=== PATIENT | male | born 1975 | race Caucasian/White ===

== ENCOUNTER 2017-03-31 03:05 | Emergency (ER) | payer BC ==
[~2017-03-31] VITALS: Ht 172.7 cm; Wt 67.0 kg
[2017-03-31 03:13] VITALS: Ht 172.7 cm; Wt 67.0 kg
[2017-03-31] MEDS ORDERED: KETOROLAC 30 MG INJ IV STA ×3 (03:13→07:53)
[2017-03-31] MEDS ORDERED: morphine 4 MG/ML VIAL IV STA (03:13)
[2017-03-31] MEDS ORDERED: ONDANSETRON 4 MG INJ IV STA (03:13)
[2017-03-31] MEDS ORDERED: SOD CHLORIDE 0.9% 1,000 ML IV STA (03:13)
[2017-03-31 03:28] LABS: ADD SCAN DIFF NO
[2017-03-31 03:33] LABS: BASOPHIL # 0.1 10^3/ul (0.0-0.1); BASOPHILS % 1.1 % (0.0-2.0); EOSINOPHILS # 0.1 10^3/ul (0.0-0.5); EOSINOPHILS % 1.5 % (0.0-7.0); HEMATOCRIT 40.3 % (42.0-52.0); LYMPHOCYTES % 53.4 % (15.0-51.0); MEAN CORPUSCULAR HEMOGLOBIN 30.6 pg (29.0-33.0); MEAN CORPUSCULAR HGB CONC 34.7 g/dl (32.0-37.0); MEAN CORPUSCULAR VOLUME 88.2 fl (82.0-101.0); MEAN PLATELET VOLUME 8.8 fl (7.4-10.4); MONOCYTE # 0.7 10^3/ul (0.3-0.9); NEUTROPHIL # 2.6 10^3/ul (1.6-7.5); NEUTROPHILS % 34.7 % (39.0-77.0); PLATELET COUNT 322 10^3/UL (140-415); RED BLOOD COUNT 4.57 10^6/ul (4.70-6.10); RED CELL DISTRIBUTION WIDTH 12.3 % (11.5-14.5); WHITE BLOOD COUNT 7.4 10^3/ul (4.8-10.8)
[2017-03-31 04:01] LABS: ALBUMIN 4.7 g/dl (3.3-4.9); ALBUMIN/GLOBULIN RATIO 1.17; BILIRUBIN,INDIRECT 0.1 mg/dl (0-1.1); BILIRUBIN,TOTAL 0.1 mg/dl (0.2-1.3); CALCIUM 10.1 mg/dl (8.4-10.2); CREATININE 1.14 mg/dl (0.61-1.24); POTASSIUM 3.5 mmol/L (3.5-5.1); TOTAL PROTEIN 8.7 g/dl (6.1-8.1)
--- NOTE | 2017-03-31 04:11 | RADRPT ---
PROCEDURE: CT Abdomen and Pelvis without contrast. CLINICAL INDICATION: Abdominal pain TECHNIQUE: CT scan of the abdomen and pelvis without contrast was performed on a multidetector hig h-resolution CT scanner. The patient was scanned without intravenous contrast. Coronal and sagittal reformatted images were obtained from the axial source images. Images were reviewed on a high-resol [employer] PACS workstation. The total exam CTDI equals 7.99 mGy and the total exam DLP equals 455.4 mGy- cm. One or more the following dose reduction techniques were utilized: Automated exposure control, adjus tment of the mA/ or kV according to patient's size, or use of iterative reconstruction technique. COMPARISON: None. FINDINGS: CT abdomen: Minimal dependent atelectasis in posterior lower lungs. Minimal linear atelectasis/fibrosis is seen at the lung bases. The heart size is normal, without pericardial thickening or effusion. The liver is normal in size and density without focal mass or intrahepatic biliary dilatation. The spleen is normal in size and homogeneous in density. Food material/debris and air in stomach. The pancreas a s visualized is normal. The gallbladder and biliary tree are unremarkable and there is no evidence for biliary dilatation. The adrenal glands are symmetric and normal. There is a nonobstructing 2 m m calculus in the mid left kidney. There is mild right hydronephrosis and a 3 mm calculus at the ri ght ureterovesicle junction. The aorta is of normal caliber. There is no retroperitoneal lymphadenopathy. The nathan hepatis r egion is clear. The bowel and mesentery, as visualized, are unremarkable. CT pelvis: The small bowel loops situated within the pelvis are unremarkable. The pelvic organs are normal. T he pelvic sidewalls and inguinal regions are clear. The sigmoid colon and rectum are unremarkable. No mass, lymphadenopathy, or free fluid is seen. No acute inflammation is seen. There is an unrem arkable appendix. Bilateral L5 spondylolysis with minimal grade 1 L5 on S1 spondylolisthesis. 1 cm likely dystrophic c alcification in muscle anterior to right hip. IMPRESSION: Mild right hydronephrosis and a 3 mm calculus at the right ureterovesicle junction. Nonobstructing 2 mm calculus in mid left kidney. Please see above. RPTAT: HJES .Mayco Marsh MD, MD Date Time Electronically viewed and signed by .Mayco Marsh MD, on 03/31/2017 04:11 .S/
[2017-03-31] MEDS ORDERED: HYDROmorphONE 1 MG/ML SYG IV ONE (04:17)
--- NOTE | 2017-03-31 04:35 | ERD ---
ER Documentation Chief Complaint Date/Time DATE: 03/31/17 TIME: 04:34 Chief Complaint HPI 41-year-old male comes in once of flank pain sudden onset for 3 hours. Pain is moderate to severe in intensity with associated nausea and 2 episodes of vomiting which were nonbilious. No radiations. No dysuria. No fevers or chills. No other current complaints. ROS All systems reviewed and are negative except as per history of present illness. Allergies Allergies: Coded Allergies: No Known Drug Allergies (Verified Allergy, Unknown, 03/31/17) PMhx/Soc Medical and Surgical Hx: pt denies Surgical Hx History of Surgery: No Anesthesia Reaction: No Hx Neurological Disorder: No Hx Respiratory Disorders: No Hx Cardiac Disorders: Yes (HTN) Hx Psychiatric Problems: No Hx Miscellaneous Medical Probl: No Hx Alcohol Use: No Hx Substance Use: No Hx Tobacco Use: No Smoking Status: Never smoker Physical Exam Vitals Vital Signs Date Time Temp Pulse Resp B/P Pulse Ox O2 Delivery O2 Flow Rate FiO2 03/31/17 03:44 98.3 67 18 158/88 100 Room Air 03/31/17 03:13 98.3 79 24 136/96 100 Physical Exam Const: [] Head: Atraumatic Eyes: Normal Conjunctiva ENT: Normal External Ears, Nose and Mouth. Neck: Full range of motion..~ No meningismus. Resp: Clear to auscultation bilaterally Cardio: Regular rate and rhythm, no murmurs Abd: Soft, non tender, non distended. Normal bowel sounds Skin: No petechiae or rashes Back: No midline or flank tenderness Ext: No cyanosis, or edema Neur: Awake and alert Psych: Normal Mood and Affect Result Diagram: 03/31/17 0320 03/31/17 0320 Results 24 hrs Laboratory Tests Test 03/31/17 03:20 White Blood Count 7.410^3/ul Red Blood Count 4.5710^6/ul Hemoglobin 14.0g/dl Hematocrit 40.3% Mean Corpuscular Volume 88.2fl Mean Corpuscular Hemoglobin 30.6pg Mean Corpuscular Hemoglobin Concent 34.7g/dl Red Cell Distribution Width 12.3% Platelet Count 76552^3/UL Mean Platelet Volume 8.8fl Neutrophils % 34.7% Lymphocytes % 53.4% Monocytes % 9.0% Eosinophils % 1.5% Basophils % 1.1% Nucleated Red Blood Cells % 0.0/100WBC Neutrophils # 2.610^3/ul Lymphocytes # 4.010^3/ul Monocytes # 0.710^3/ul Eosinophils # 0.110^3/ul Basophils # 0.110^3/ul Nucleated Red Blood Cells # 0.010^3/ul Sodium Level 142mmol/L Potassium Level 3.5mmol/L Chloride Level 105mmol/L Carbon Dioxide Level 23mmol/L Anion Gap 18 Blood Urea Nitrogen 17mg/dl Creatinine 1.14mg/dl Glucose Level 110mg/dl Calcium Level 10.1mg/dl Total Bilirubin 0.1mg/dl Direct Bilirubin 0.00mg/dl Indirect Bilirubin 0.1mg/dl Aspartate Amino Transf (AST/SGOT) 28IU/L Alanine Aminotransferase (ALT/SGPT) 46IU/L Alkaline Phosphatase 57IU/L Total Protein 8.7g/dl Albumin 4.7g/dl Globulin 4.00g/dl Albumin/Globulin Ratio 1.17 Lipase 267U/L Current Medications Medications (Trade) Dose Ordered Sig/Tylor Route PRN Reason Start Time Stop Time Status Last Admin Dose Admin Sodium Chloride (NS) 1,000 ml @ 1,000 mls/hr Q1H STAT IV 03/31/17 03:13 03/31/17 04:12 DC 03/31/17 03:35 Morphine Sulfate (morphine) 4 mg ONCE STAT IV 03/31/17 03:13 03/31/17 03:14 DC 03/31/17 03:35 Ondansetron HCl (Zofran Inj) 4 mg ONCE STAT IV 03/31/17 03:13 03/31/17 03:14 DC 03/31/17 03:35 Ketorolac Tromethamine (Toradol) 30 mg ONCE STAT IV 03/31/17 03:13 03/31/17 03:14 DC 03/31/17 03:35 Hydromorphone HCl (Dilaudid) 1 mg ONCE ONCE IV 03/31/17 04:17 03/31/17 04:18 DC 03/31/17 04:19 Procedures/MDM Medical decision-making: Very pleasant 41-year-old male was works week acute renal colic. CT shows evidence of passing renal stone. Discharge home with Flomax, Cipro, Olancha, Zofran, Motrin. Follow-up in 8 hours for serial abdominal exams. Departure Diagnosis: Primary Impression: Flank pain Condition: Stable LINDA BACON March 31, 2017 04:35
[2017-03-31] MEDS ORDERED: CIPR500T4 PO (04:41)
[2017-03-31] MEDS ORDERED: IBUP800T25 PO (04:41)
[2017-03-31] MEDS ORDERED: HYDR-902 PO (04:41)
[2017-03-31] MEDS ORDERED: TAMS-14 PO (04:41)
[2017-03-31 08:34] VITALS: BP 122/82; PULSE 62; RESP 18; TEMP 98.5
== END 2017-03-31 08:34 | disposition home or self-care (01) ==
LOC: E/R 03:05
DX: R10.9 Unspecified abdominal pain (principal); I10 Essential (primary) hypertension; R11.2 Nausea with vomiting, unspecified
CPT/HCPCS: 36415; 74176; 80053; 83690; 85025; 96374; 96375; 96376; 99285; J1170; J1885; J2270; J2405; J7030